=== PATIENT | male | born 1940 | race American Indian/Alaskan Native ===

== ENCOUNTER 2016-10-14 10:13 | Outpatient (CLI) | payer MEDICARE, OTHER ==
[2016-10-14 10:48] LABS: ALBUMIN/GLOBULIN RATIO 1.4 (1.0-2.2); CALCIUM 8.9 mg/dL (8.5-10.3); CREATININE 1.1 mg/dL (0.6-1.2); POTASSIUM 3.7 mmol/L (3.5-5.0); TOTAL PROTEIN 7.1 g/dL (6.7-8.2)
== END 2016-10-14 10:14 | disposition home or self-care (01) ==
LOC: LAB 10:13
DX: I10 Essential (primary) hypertension (principal)
CPT/HCPCS: 36415; 80053

== ENCOUNTER 2017-08-22 10:31 | Outpatient (CLI) | payer MEDICARE, OTHER | END 2017-08-22 10:32 | disposition home or self-care (01) | LOC: LAB 10:31 | DX: E55.9 Vitamin D deficiency, unspecified (principal) | CPT/HCPCS: 36415; 82306 ==

== ENCOUNTER 2019-11-30 12:24 | Emergency (ER) | payer MEDICARE, OTHER ==
--- NOTE | 2019-11-30 13:28 | XRAY Report ---
PROCEDURE: Shoulder 3 View LT INDICATIONS: L shoulder pain, hx of fx TECHNIQUE: 3 views of the shoulder were acquired. COMPARISON: None. FINDINGS: Bones: There is anterior dislocation of the humeral head relative to the glenoid with impaction. A H ill-Sachs lesion is seen in the posterosuperior humeral head. No suspicious bony lesions. Visualized ribs appear intact. Mild acromioclavicular joint osteoarthrosis. Soft tissues: No suspicious soft tissue calcifications. IMPRESSION: Anterior dislocation of the humeral head with probable acute on chronic Hill-Sachs lesion of the post erosuperior humeral head. Postreduction radiographs can be obtained to better evaluate the anterior g lenoid. Findings were discussed with the referring provider, Dr. Lazar, by telephone on 11/30/2019 at 1:25 PM . Reviewed by: Davey Mercado MD on 11/30/2019 1:27 PM PDT Approved by: Davey Mercado MD on 11/30/2019 1:27 PM PDT Station ID: [id number]
[2019-11-30] MEDS ORDERED: PROPOFOL 200 MG/20 ML VIAL IVP STA ×2 (13:44→18:04)
[2019-11-30 15:49] VITALS: BP 151/96
--- NOTE | 2019-11-30 15:50 | XRAY Report ---
PROCEDURE: Shoulder 2 View LT INDICATIONS: post-reduction TECHNIQUE: 2 views of the shoulder were acquired. COMPARISON: Same day left shoulder radiographs. FINDINGS: Bones: Relocation of the left shoulder glenohumeral joint. Hill-Sachs deformity at the posterior late ral humeral head is seen. No bony Bankart is seen. No suspicious bony lesions. Visualized ribs appe ar intact. Soft tissues: No suspicious soft tissue calcifications. IMPRESSION: Relocation of the left shoulder GH joint. Hill-Sachs fracture is present. Reviewed by: Christiano Barajas MD on 11/30/2019 3:48 PM PDT Approved by: Christiano Barajas MD on 11/30/2019 3:48 PM PDT Station ID: [id number]
--- NOTE | 2019-11-30 15:58 | ED Physician Documentation ---
History of Present Illness - Stated complaint Stated Complaint: LT SHOULDER PX - Chief complaint Chief Complaint: Ext Problem - History obtained from History obtained from: Patient - Additonal information Additional information: Patient comes emergency department complaining of pain in his left shoulder last night after turning his head while having his hands behind his head. Patient states he has a history of extensive injury in 2004 after a fall, which resulted in rotator cuff tear and left shoulder dislocation. Patient repairs of his injuries and never did have any further problems with the shoulder until last night. Patient states he has been able to move the shoulder somewhat, but has a lot of pain if he tries to internally or externally rotate. He also cannot raise the shoulder very high without pain. Patient denies any numbness or tingling. No other injuries. No other complaints at this time Review of Systems Ten Systems: 10 systems reviewed and negative Constitutional: reports: Reviewed and negative Eyes: reports: Reviewed and negative Ears: reports: Reviewed and negative Nose: reports: Reviewed and negative Throat: reports: Reviewed and negative Cardiac: reports: Reviewed and negative Respiratory: reports: Reviewed and negative GI: reports: Reviewed and negative : reports: Reviewed and negative Skin: reports: Reviewed and negative Musculoskeletal: reports: Joint pain Neurologic: reports: Reviewed and negative Psychiatric: reports: Reviewed and negative Endocrine: reports: Reviewed and negative Immunocompromised: reports: Reviewed and negative PD PAST MEDICAL HISTORY - Past Medical History Past Medical History: Yes Cardiovascular: Hypertension, High cholesterol Respiratory: None Neuro: None Endocrine/Autoimmune: None GI: None : Benign prostate hypertrophy, Other HEENT: Other Psych: None Musculoskeletal: Gout, Other Derm: None Other Past Medical History: L humeral fx and rotator cuff repair, IVC filter, prostatectomy - Past Surgical History Past Surgical History: Yes Ortho: Rotator cuff repair Cardiovascular: Other HEENT: Cataracts - Present Medications Home Medications: Ambulatory Orders Medication Instructions Recorded Confirmed Hydrocodone/Acetaminophen 1 each PO Q6HR PRN #12 tablet 11/30/19 [Hydrocodon-Acetaminophn 10-325] - Allergies Allergies/Adverse Reactions: Allergies Allergy/AdvReac Type Severity Reaction Status Date / Time No Known Drug Allergies Allergy Verified 11/30/19 12:43 - Social History Does the pt smoke?: No Smoking Status: Never smoker Does the pt drink ETOH?: No Does the pt have substance abuse?: No - Immunizations Immunizations are current?: Yes PD ED PE NORMAL - Vitals Vital signs reviewed: Yes - General General: Alert and oriented X 3, No acute distress, Well developed/nourished - HEENT HEENT: Atraumatic, PERRL, EOMI, Moist mucous membranes - Neck Neck: Supple, no meningeal sign - Cardiac Cardiac: Strong equal pulses - Respiratory Respiratory: No respiratory distress - Derm Derm: Normal color, Warm and dry, No rash - Extremities Extremities: No edema, No calf tenderness / cord, Other (Patient has mild caving at the glenoid rim on the left shoulder. Limited active range of motion in all directions, but nearly full passive range of motion is noted, though this does cause some pain.) - Neuro Neuro: Alert and oriented X 3, turbine assembler 2-12 intact, No motor deficit, No sensory deficit, Normal speech - Psych Psych: Normal mood, Normal affect Results - Vitals Vitals: Oxygen O2 Source Room air - Rads (name of study) L Shoulder XR #1 Radiology: Final report received, EMP read indepedently, See rad report (Anterior dislocation of humeral head with probable acute on chronic Hill-Sachs lesion of the posterior superior humeral head.) Shoulder XR #2 Radiology: Final report received, EMP read indepedently, See rad report (Relocation of left shoulder glenohumeral joint. No bony Bankart lesion.) Procedures - Reduction Body part reduced: Left, Shoulder Fracture or dislocation: Dislocation Anesthesia: Propofol Shoulder reduction technique: Traction - counter tract Reduction aftercare: NV intact, Xray confirms reduction, Alignment improved, Sling, Patient tolerated well - Procedural sedation Sedation prep: Informed consent, Time out completed, Last meal (0800 (liquid only)), PE performed, ASA 2 - mild disease, IV O2 monitor, RT present Sedation medications: propofol Patient status during sedation: Unresponsive, Vitals remained stable, Maintained airway, Recovered uneventfully Sedation recovery: Recovered uneventfully PD MEDICAL DECISION MAKING - ED course Complexity details: reviewed old records, reviewed results, re-evaluated patient, considered differential, d/w patient ED course: Patient's dislocation was reduced as noted. Patient recovered from his anesthesia without incident and was without further complaints. He was neurovascularly intact. We have discussed wearing a sling, plus doing some gentle range of motion. Patient is scheduled to follow-up with Dr. Aceves, his primary care physician on [place] [address]. He is encouraged to keep that appointment, during which he may discuss referral to orthopedics if needed. We have discussed the usual indications for return. Patient's was present throughout the entire stay and will be driving him home. Departure - Departure Disposition: 01 Home, Self Care Clinical Impression: Shoulder dislocation Qualifiers: Encounter type: initial encounter Laterality: left Qualified Code(s): S43.005A - Unspecified dislocation of left shoulder joint, initial encounter Condition: Stable Instructions: ED Dislocation Shoulder Redu Prescriptions: Hydrocodone/Acetaminophen [Hydrocodon-Acetaminophn 10-325] 1 each PO Q6HR PRN #12 tablet PRN Reason: Pain Discharge Date/Time: 11/30/19 16:23
== END 2019-11-30 16:23 | disposition home or self-care (01) ==
LOC: ED 12:24
DX: S43.015A Anterior dislocation of left humerus, initial encounter (principal); X50.9XXA Other and unspecified overexertion or strenuous movements or postures, initial encounter; M19.012 Primary osteoarthritis, left shoulder; I10 Essential (primary) hypertension
CPT/HCPCS: 94770; 99152; 99153; 99284; 99285

== ENCOUNTER 2020-11-09 06:33 | Emergency (ER) | payer MEDICARE, OTHER ==
[2020-11-09] MEDS ORDERED: HYDROmorphone 1 MG/ML CARPUJECT IVP STA (07:27)
[2020-11-09] MEDS ORDERED: KETOROLAC 30 MG/ML VIAL IVP STA (07:27)
[2020-11-09] MEDS ORDERED: PROPOFOL 200 MG/20 ML VIAL IVP STA (07:36)
--- NOTE | 2020-11-09 07:54 | XRAY Report ---
PROCEDURE: Shoulder 3 View LT INDICATIONS: fall/pain TECHNIQUE: 3 views of the shoulder were acquired. COMPARISON: 11/30/2019 FINDINGS: Bones: There is anterior shoulder dislocation. There is a Hill-Sachs deformity seen, with bone fragme nts seen. Age-appropriate degenerative changes are seen. The visualized ribs appear intact. No suspicious lytic or blastic lesions are seen. Soft tissues: No suspicious soft tissue calcifications. The visualized lung demonstrates a normal a ppearance. IMPRESSION: Anterior shoulder dislocation. There is a Hill-Sachs deformity seen, which was previously demonstrated. If it would be helpful for clinical management decision making, please consider a dedicated shoulder CT for further evaluation. Reviewed by: Kelby Negron MD on 11/09/2020 6:53 AM CODEY Approved by: Kelby Negron MD on 11/09/2020 6:53 AM CODEY Station ID: [id number]
--- NOTE | 2020-11-09 07:57 | ED Physician Documentation ---
PD HPI UPPER EXT INJURY - Stated complaint Stated Complaint: LT SHOULDER PX - Chief complaint Chief Complaint: Ext Problem - History obtained from History obtained from: Patient - Additonal information Additional information: Patient comes emergency department chief complaint of left shoulder pain and dislocation after a ground-level fall last night. Patient states he slipped and fell in the kitchen and that he believes he tried to catch himself with his left upper extremity. The patient has a history of recurrent dislocations previously and was seen in our ED last November by myself for the same thing. The patient states that he figured his shoulder was dislocated, but he wanted to try to get some sleep, so he went to bed. As such, the patient is about 10 hours out from the injury. He states he feels as though he got some bumps and bruises but denies any other significant injury. He did bump his head, on what he is not sure, but does not think he lost consciousness. He has been ambulatory since the accident. Review of Systems Ten Systems: 10 systems reviewed and negative Constitutional: reports: Reviewed and negative Eyes: reports: Reviewed and negative Ears: reports: Reviewed and negative Nose: reports: Reviewed and negative Throat: reports: Reviewed and negative Cardiac: reports: Reviewed and negative Respiratory: reports: Reviewed and negative GI: reports: Reviewed and negative : reports: Reviewed and negative Skin: reports: Reviewed and negative Musculoskeletal: reports: Joint pain Neurologic: reports: Reviewed and negative Psychiatric: reports: Reviewed and negative Endocrine: reports: Reviewed and negative Immunocompromised: reports: Reviewed and negative PD PAST MEDICAL HISTORY - Past Medical History Past Medical History: Yes Cardiovascular: Hypertension, High cholesterol Respiratory: Sleep apnea Neuro: None Endocrine/Autoimmune: None GI: None : Benign prostate hypertrophy, Other HEENT: Other Psych: None Musculoskeletal: Gout, Other Derm: None - Past Surgical History Past Surgical History: Yes Ortho: Rotator cuff repair Cardiovascular: Other HEENT: Cataracts - Present Medications Home Medications: Ambulatory Orders Medication Instructions Recorded Confirmed Calcipotriene/Betamethasone 1 applic TOP DAILY 10/23/20 11/09/20 [Wynzora 0.005%-0.064% Cream] Tacrolimus/Hyaluronate/Niacin 1 applic TOP DAILY 10/23/20 11/09/20 [Oxianujo 4%-0.1% Cream] Aspirin EC [Ecotrin] 1 tab PO DAILY 10/24/20 11/09/20 Cholecalciferol (Vitamin D3) 1,000 units PO BID 10/24/20 11/09/20 [Vitamin D3] Cyanocobalamin/Folic Acid 1 tab PO DAILY 10/24/20 11/09/20 [C02-Ntfpl Acid 2500-400 Mcg Tb] Losartan [Cozaar] 100 mg PO DAILY 10/24/20 11/09/20 Omeprazole [PriLOSEC] 1 tab PO DAILY 10/24/20 11/09/20 Potassium Chloride 1 tab PO DAILY 10/24/20 11/09/20 Propylene Glycol [Systane Complete] 1 drops EACHEYE DAILY 10/24/20 11/09/20 Zaleplon 1 cap PO DAILY 10/24/20 11/09/20 bisoproloL fumarate [Bisoprolol 1 tab PO DAILY 10/24/20 11/09/20 Fumarate] HYDROcod/ACETAM 5/325 [[place] 5/325] 1 - 2 tablet PO Q6H PRN #14 tablet 11/09/20 - Allergies Allergies/Adverse Reactions: Allergies Allergy/AdvReac Type Severity Reaction Status Date / Time No Known Drug Allergies Allergy Verified 11/09/20 06:39 - Social History Does the pt smoke?: No Smoking Status: Never smoker Does the pt drink ETOH?: No Does the pt have substance abuse?: No - Immunizations Immunizations are current?: Yes PD ED PE NORMAL - Vitals Vital signs reviewed: Yes - General General: Alert and oriented X 3, No acute distress, Well developed/nourished - HEENT HEENT: Atraumatic, PERRL, EOMI, Moist mucous membranes - Neck Neck: Supple, no meningeal sign, No bony TTP - Cardiac Cardiac: RRR, No murmur, Strong equal pulses - Respiratory Respiratory: No respiratory distress, Clear bilaterally - Abdomen Abdomen: Soft, Non tender, Non distended - Back Back: No spinal TTP - Derm Derm: Normal color, Warm and dry, No rash - Extremities Extremities: No edema, Other (Left shoulder with concavity and hollowness at the shoulder joint, just inferior to the glenoid rim. Humeral head is palpable medial and anterior to the joint.) - Neuro Neuro: Alert and oriented X 3 - Psych Psych: Normal mood, Normal affect Results - Vitals Vitals: Vital Signs - 24 hr 11/09/20 11/09/20 11/09/20 06:39 06:43 07:58 Temperature 36.2 C L 36.2 C L Heart Rate 59 L 59 L 58 L Respiratory 17 17 17 Rate Blood Pressure 148/87 H 148/87 H 122/93 H O2 Saturation 95 95 97 11/09/20 11/09/20 11/09/20 08:20 08:30 08:35 Temperature Heart Rate 55 L 50 L 56 L Respiratory 14 12 15 Rate Blood Pressure 125/78 132/74 H O2 Saturation 99 99 11/09/20 11/09/20 11/09/20 08:40 08:45 09:12 Temperature Heart Rate 54 L 52 L 49 L Respiratory 15 16 16 Rate Blood Pressure 116/80 115/85 H O2 Saturation 96 97 97 11/09/20 09:23 Temperature Heart Rate 56 L Respiratory 15 Rate Blood Pressure 122/76 O2 Saturation 98 Oxygen O2 Source Room air - Rads (name of study) Left shoulder x-ray Radiology: Final report received, EMP read indepedently, See rad report (Anterior dislocation left shoulder) L shoulder xr, post-reduction Radiology: Final report received, EMP read indepedently, See rad report (relocated, continued appearance of Hill-Sachs deformity.) Procedures - Reduction Body part reduced: Left, Shoulder Fracture or dislocation: Dislocation Anesthesia: Other (Propofol) Shoulder reduction technique: Traction - counter tract Reduction aftercare: NV intact, Xray confirms reduction, Alignment improved, Sling, Patient tolerated well - Procedural sedation Sedation prep: Informed consent, Time out completed, Last meal (Last night), ASA 2 - mild disease, IV O2 monitor, ET CO2 monitor, RT present Sedation medications: propofol Patient status during sedation: Unresponsive, Vitals remained stable, Maintained airway, Recovered uneventfully Sedation recovery: Recovered uneventfully, Back to baseline Time in sedation (Minutes): 5 PD MEDICAL DECISION MAKING - ED course Complexity details: reviewed results, re-evaluated patient, considered differential, d/w patient, d/w family ED course: The patient had an established history of prior left shoulder dislocations with Hill-Sachs deformity, and the same findings were noted on today's x-ray. Patient was sedated as above and dislocation was reduced without difficulty. The patient recovered uneventfully and repeat x-ray showed the shoulder to be relocated. We discussed the need for the patient to follow-up with orthopedics if he continues to have issues with dislocation. We have discussed the usual indications for return. His is present to drive him home. Departure - Departure Disposition: 01 Home, Self Care Clinical Impression: Shoulder dislocation Qualifiers: Encounter type: initial encounter Laterality: left Qualified Code(s): S43.005A - Unspecified dislocation of left shoulder joint, initial encounter Condition: Stable Instructions: ED Dislocation Shoulder Redu, ED Sling Prescriptions: HYDROcod/ACETAM 5/325 [[place] 5/325] 1 - 2 tablet PO Q6H PRN #14 tablet PRN Reason: Pain Comments: Please wear the sling for the next week. You may take your arm out and do gentle range of motion but do not do any big movements or raise your arm above your head until the week has passed. Your dislocation was reduced easily with sedation today. Please follow-up with your orthopedist if you have further concerns about your shoulder. As far as your head injury, you have opted not to have CT scan today. There is a small area of bruising over your left posterior scalp, but most likely, given the amount of time that has passed since you hit your head, there is no bleeding in the brain. However, if you begin to feel worsening headache or if you develop dizziness or any other concerning symptoms, please return to the emergency department for further evaluation. Discharge Date/Time: 11/09/20 09:50
--- NOTE | 2020-11-09 08:52 | XRAY Report ---
PROCEDURE: Shoulder 1 View LT INDICATIONS: post-reduction TECHNIQUE: 1 view of the shoulder was acquired. COMPARISON: Earlier in the day, 11/09/2020 FINDINGS: Bones: The shoulder has now been relocated. Hill-Sachs deformity with bone fragments can again be se en. No suspicious bony lesions. Visualized ribs appear intact. Soft tissues: No suspicious soft tissue calcifications. IMPRESSION: Shoulder relocation. Hill-Sachs deformity with bone fragments seen. Reviewed by: Kelby Negron MD on 11/09/2020 7:50 AM CODEY Approved by: Kelby Negron MD on 11/09/2020 7:50 AM CODEY Station ID: [id number]
[2020-11-09 09:45] VITALS: BP 122/76
== END 2020-11-09 09:50 | disposition home or self-care (01) ==
LOC: ED 06:33
DX: S43.005A Unspecified dislocation of left shoulder joint, initial encounter (principal); W01.10XA Fall on same level from slipping, tripping and stumbling with subsequent striking against unspecified object, initial encounter; Y92.000 Kitchen of unspecified non-institutional (private) residence as the place of occurrence of the external cause; S42.292A Other displaced fracture of upper end of left humerus, initial encounter for closed fracture
CPT/HCPCS: 23655; 73020; 73030; 96374; 99283; 99285; J1170; 94770

== ENCOUNTER 2021-06-03 10:34 | Outpatient (CLI) | payer MEDICARE, OTHER ==
[2021-06-03 11:24] VITALS: BP 138/70
--- NOTE | 2021-06-03 11:24 | SLEEP CARE CONSULTATION ---
Information from patient questionnaire entered by Hailee Mina MA. I have reviewed and concur with the information entered by Hailee Mina MA. This document represents the service I personally performed and the decisions made by , Kathe Hall ARNP. History of Present Illness Service Date and Time: 06/03/2021 1034 Reason for Visit: New patient (ON CPAP, FIRST COMPLIANCE,), Previously diagnosed sleep apnea, sleep apnea on CPAP therapy Accompanied by: Spouse Chief Complaint: reports: Snoring, Observed pauses in breathing, Other (Check CPAP chip) Date of Onset: 10 years Usual bedtime: 8-9 pm Time it takes to fall asleep: 1-2 hours Snores at night: Yes Observed to quit breathing while asleep: Yes Sleeps alone due to snoring: Yes Number of times waking at night: 2-3 Reasons for waking at night: reports: Bathroom Toss, Turn, or Twitch while sleeping: Yes Recalls having dreams: Yes Usually gets out of bed at: 6 am Feels refreshed in the morning: No Morning headache: No Sleepy or fatigued during the day: No Ever fallen asleep while driving: No Takes day naps: Yes Dreams during day naps: No Prior sleep studies: Yes Year and Where: 2009 [facility] Additional HPI information: RUBEN MOODY was previously diagnosed to have severe, AHI 38, 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 - Parasomnia Symptoms Ever been unable to move upon waking from sleep: No Walks in sleep: No Talks in sleep: No Ever acted out dreams in sleep: No Ever felt weak in the knees when startled or emotional: No Bothered by creepy, crawly, restless sensations in legs: No Problems with memory or concentration: No CPAP Compliance Data - Data Reviewed with Patient Average duration of nightly device use: 8 hours 59 minutes Compliance rate %: 82 (ASV with EPAP 6 cmH2O/pressure support 3-15) Current pressure setting (cmH2O): 6/3-15 Average residual AHI: 2.4 Compliance data discussion: He is using a nasal cushion mask. He is with [employer] for his supplies. Subjective Patient concerns: reports: dry mouth, nose, throat (occasionally). denies: aerophagia, mask discomfort, air blowing in eyes, mask leak noise, condensation in mask/hose, nasal congestion, epistaxis Observed to snore while using device: No Current pressure setting perceived as: comfortable On therapy, patient: reports: sleeping better, awakening more refreshed, being more awake and alert during the day, more rested overall. denies: drowsiness while driving Initial Herminie Sleepiness Scale score: 1 (2021) Past Medical History Past Medical History: reports: Hypertension, Gout, GERD Social History The patient's occupation is a RE. Patient is and lives in . Have you smoked in the past 12 months: No Alcohol use: Yes Alcohol amount and frequency: 1-2 glasses daily Caffeine use: No Family History Family history of sleep disordered breathing: No Allergies and Home Medications Drug allergies reviewed: Yes (NKDA) Home medication list reviewed: Yes Allergy and home medication list: Allergies No Known Drug Allergies Allergy (Verified 11/09/20 06:39) Medications: Allopurinol 300 mg Losartan 100 mg Bisoprolol Potassium 20 meq Atorvastatin 20 mg Spironolactone 25 mg Prilosec B6 - B12 low dose aspirin Review of Systems Cardiovascular: reports: high blood pressure Gastrointestinal: reports: heartburn Urinary: reports: frequency Ear/Nose/Throat: reports: tonsillectomy, wisdom teeth removed Endocrine: reports: increased urination Physical Exam Vital signs obtained and entered by: Vinnie MINA CMA MARGARITO Blood Pressure: 138/70 (RIGHT, PULSE 72, RESP 16, ) Cuff size: wrist Heart Rate: 67 O2 Saturation: 96 Height: 5 ft 8 in Weight: 182 lb (W/O) Body Mass Index: 27.6 BMI Classification: Overweight Impression and Plan 1. Complex Obstructive/Central Sleep Apnea-Hypopnea Syndrome, severe, with good treatment compliance and good apnea control. On ASV CPAP therapy, the patient has better sleep quality and is more rested overall. Ruben has been on a ASV CPAP since original diagnosis in 2011. He is satisfied with therapy and has significant improvement of his sleep apnea. He occasionally gets some dry mouth for which he sips liquids during the night when necessary. He comes in today to get his compliance follow up for he new machine. He is compliant according to his therapy report. There are no changes needed and I will let his DME [employer] know to update his supplies. I will follow up with him in a year. Patient's apnea severity and rationale for treatment to reduce apnea, improve sleep quality and reduce cardiovascular and cerebrovascular events was reviewed. I also reviewed the benefit of consistent device use of CPAP for hypertension and gastric reflux. * Continue ASV CPAP pressure at EPAP 6 cmH2O with pressure support 3-15 cmH2O * Prescription to update supplies as needed * Notify me if snoring with mask or feeling that the pressure is too much or too little * Try to lose weight * Call this office if any problems using CPAP * Return for follow up in 1 year, or sooner if concerns arise Other Participants: Spouse/Significant Other Time Spent with Patient (minutes): 32
== END 2021-06-03 10:35 | disposition home or self-care (01) ==
LOC: SC 10:34
PROVIDERS: ATTEND Nurse Practitioner Family
DX: G47.31 Primary central sleep apnea (principal); G47.33 Obstructive sleep apnea (adult) (pediatric); E66.3 Overweight; Z68.27 Body mass index [BMI] 27.0-27.9, adult
CPT/HCPCS: 99203; G0463; 99212

== ENCOUNTER 2021-08-12 08:48 | Emergency (ER) | payer MEDICARE, OTHER ==
[2021-08-12 09:08] VITALS: BP 118/71
[2021-08-12] MEDS: CHERRY SYRUP 10 ML UDC PO ONE (09:29)
[2021-08-12] MEDS: HYDROcod/ACETAM 5/325 MG TABLET PO STA (09:29)
[2021-08-12] MEDS: DEXAMETHASONE 10 MG/ML VIAL PO STA (09:29)
[2021-08-12] MEDS: DOXYCYCLINE 100 MG TABLET PO STA (09:29)
[2021-08-12] MEDS: COLCHICINE 0.6 MG TABLET PO STA (09:31)
--- NOTE | 2021-08-12 09:31 | ED Physician Documentation ---
PD HPI SKIN - Stated complaint Stated Complaint: RT FT SWELLING - Chief complaint Chief Complaint: Wound - History obtained from History obtained from: Patient - History of Present Illness Timing - onset: Yesterday Timing - details: Abrupt onset, Still present Location: LLE (left great toe MTP side and plantar redness and swelling with callus developed over past 2-3 days.) Quality / character: Painful, Discolored (red), Swelling Associated symptoms: No: Fever, N/V/D Similar symptoms before: Diagnosis (remote history of gout. Has had callus wound on other foot, treated at wound care clinic and slowly healed.) Recently seen: Not recently seen Review of Systems Constitutional: denies: Fever, Chills Skin: reports: Lesions (callus without drainage on plantar MT head area.) PD PAST MEDICAL HISTORY - Past Medical History Cardiovascular: Hypertension, High cholesterol Respiratory: Sleep apnea Neuro: None Endocrine/Autoimmune: None GI: None : Benign prostate hypertrophy, Other HEENT: Other Psych: None Musculoskeletal: Gout, Other Derm: None - Past Surgical History Past Surgical History: Yes Ortho: Rotator cuff repair Cardiovascular: Other HEENT: Cataracts - Present Medications Home Medications: Ambulatory Orders Medication Instructions Recorded Confirmed Calcipotriene/Betamethasone 1 applic TOP DAILY 10/23/20 11/09/20 [Wynzora 0.005%-0.064% Cream] Tacrolimus/Hyaluronate/Niacin 1 applic TOP DAILY 10/23/20 11/09/20 [Oxianujo 4%-0.1% Cream] Aspirin EC [Ecotrin] 1 tab PO DAILY 10/24/20 11/09/20 Cholecalciferol (Vitamin D3) 1,000 units PO BID 10/24/20 11/09/20 [Vitamin D3] Cyanocobalamin/Folic Acid 1 tab PO DAILY 10/24/20 11/09/20 [A67-Pgvhx Acid 2500-400 Mcg Tb] Losartan [Cozaar] 100 mg PO DAILY 10/24/20 11/09/20 Omeprazole [PriLOSEC] 1 tab PO DAILY 10/24/20 11/09/20 Potassium Chloride 1 tab PO DAILY 10/24/20 11/09/20 Propylene Glycol [Systane Complete] 1 drops EACHEYE DAILY 10/24/20 11/09/20 Zaleplon 1 cap PO DAILY 10/24/20 11/09/20 bisoproloL fumarate [Bisoprolol 1 tab PO DAILY 10/24/20 11/09/20 Fumarate] HYDROcod/ACETAM 5/325 [[place] 5/325] 1 - 2 tablet PO Q6H PRN #14 tablet 11/09/20 Colchicine 0.6 mg PO BID 5 Days #10 tablet 08/12/21 Doxycycline Hyclate 100 mg PO BID 5 Days #10 cap 08/12/21 HYDROcod/ACETAM 5/325 [[place] 5/325] 1 ea PO Q6H PRN #15 tablet 08/12/21 dexAMETHasone [Decadron] 4 mg PO DAILY #7 tablet 08/12/21 - Allergies Allergies/Adverse Reactions: Allergies Allergy/AdvReac Type Severity Reaction Status Date / Time No Known Drug Allergies Allergy Verified 08/12/21 08:57 - Social History Does the pt smoke?: No Smoking Status: Never smoker Does the pt drink ETOH?: No Does the pt have substance abuse?: No - Immunizations Immunizations are current?: Yes PD ED PE NORMAL - Vitals Vital signs reviewed: Yes - General General: Alert and oriented X 3, No acute distress, Well developed/nourished - Derm Derm: Normal color, Warm and dry - Extremities Extremities: Other (left foot with redness/tender/swelling medial great toe MTP and plantar area. Skin callus with superficial hard skin in area. Some softness/fluctuance underneath. ) Results - Vitals Vitals: Vital Signs - 24 hr 08/12/21 08:57 Temperature 37.0 C Heart Rate 56 L Respiratory 19 Rate Blood Pressure 118/71 O2 Saturation 100 Oxygen O2 Source Room air - Labs Labs: Microbiology 08/12/21 09:23 Wound Culture - Preliminary Foot - Left Procedures - Abscess I&D (location) left plantar MT head Preparation: Lidocaine 1% Incision: Incised with scalpel, Culture obtained, Other (serous fluid several drops; did not appear purulent.) Other: Pt tolerated well, Dressing applied, Antibiotic prescribed PD MEDICAL DECISION MAKING - ED course Complexity details: considered differential (gout versus infection, with some skin wound in the area. Can treat as both for now. Did get culture from callus area. ), d/w patient Departure - Departure Disposition: 01 Home, Self Care Clinical Impression: Plantar callus, Exacerbation of gout, Cellulitis Acute foot pain Qualifiers: Laterality: left Qualified Code(s): M79.672 - Pain in left foot Condition: Stable Record reviewed to determine appropriate education?: Yes Instructions: ED Infec Skin Cellulitis, ED Arthritis Gout Prescriptions: Colchicine 0.6 mg PO BID 5 Days #10 tablet dexAMETHasone [Decadron] 4 mg PO DAILY #7 tablet Doxycycline Hyclate 100 mg PO BID 5 Days #10 cap HYDROcod/ACETAM 5/325 [[place] 5/325] 1 ea PO Q6H PRN #15 tablet PRN Reason: Pain Comments: This likely represents a gout flareup. However with the callus in that same area with some mild fluid underneath, concern would be also for a local infection. You could certainly have both with the infection triggering the gout. I did do a culture of the fluid from in that area. It did not look purulent per se. The culture should result in 2 to 3 days. Meanwhile we will treated with doxycycline antibiotic for concern of staph or strep type infection. Additionally treating for gout with Decadron steroid daily for a week and col chicine twice daily with food for the next several days up to 5 days. Add Tylenol every 4-6 hours if needed for pain or hydrocodone/acetaminophen as needed for worse pain. Recheck if not improving well over the next several days. Return if worse. I transmitted your prescriptions to [facility] in [place]. I am prescribing a short course of narcotic pain medication for you. These are potentially dangerous and addictive medications that should be used carefully. These medications may constipate you. Take an rggu-kqn-oqahiyd stool softener such as docusate twice daily with plenty of water while taking these medications. If you go 24 hours without a bowel movement, take lmrh-csq-pnfwuyg MiraLAX, per package instructions. Do not drink or drive while taking these medications. If you received narcotic or sedating medications while in the emergency department do not drive for 24 hours. Store this medication in a safe, secure place and out of reach of children. It is a violation of federal law to give or sell this medication to another person or to use in a manner other than prescribed. The ED will not refill narcotic prescriptions, including prescriptions lost or stolen. You can dispose of unwanted medications at the [facility]'s office or at several pharmacies such as [facility]. Discharge Date/Time: 08/12/21 09:39
== END 2021-08-12 09:39 | disposition home or self-care (01) ==
LOC: ED 08:48
DX: M79.672 Pain in left foot (principal); L84 Corns and callosities; M10.9 Gout, unspecified
CPT/HCPCS: 10060; 87070; 87181; 87205; 99283; 99284; A9270; 87077

== ENCOUNTER 2021-08-30 10:10 | Emergency (ER) | payer MEDICARE, OTHER ==
--- NOTE | 2021-08-30 10:52 | XRAY Report ---
PROCEDURE: Shoulder 3 View LT INDICATIONS: pain, trauma to extremity TECHNIQUE: 3 views of the shoulder were acquired. COMPARISON: None. FINDINGS: Bones: Humeral head is dislocated anteroinferiorly. 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 No suspicious bony lesions. Visualized ribs appear intact. Soft tissues: No suspicious soft tissue calcifications. IMPRESSION: Recurrent shoulder dislocation. Reviewed by: Richelle Rey MD on 08/30/2021 10:50 AM PDT Approved by: Richelle Rey MD on 08/30/2021 10:50 AM PDT Station ID: [id number]
--- NOTE | 2021-08-30 11:16 | ED Physician Documentation ---
PD HPI UPPER EXT INJURY - Stated complaint Stated Complaint: LEFT SHOULDER PX,LEFT FOOT PX - Chief complaint Chief Complaint: Ext Problem - History obtained from History obtained from: Patient - History of Present Illness Location: Left, Shoulder Type of injury: Twist (he rolled over in bed and felt his shoulder pop out. This happened several hours ago.) Where injury occurred: Home Timing - onset: How many hours ago Timing - duration: Hours Timing - details: Abrupt onset, Still present Improved by: Immobilization Worsened by: Moving, Palpating Associated symptoms: No: Weakness, Numbness Similar symptoms before: Diagnosis (prior dislocations 4 times in past 10 years, with initial injury 10 years ago with rotator cuff injury. Subsequent dislocations were low impact or torsional.) Recently seen: Emergency Dept (he had callus on foot get infected and had it lanced/unroofed and subsequent wound care/abx with improvment. He has some loose skin still and wanted wound checked while here as well.) Review of Systems Constitutional: denies: Fever, Chills Nose: denies: Rhinorrhea / runny nose, Congestion Throat: denies: Sore throat Respiratory: denies: Cough Musculoskeletal: reports: Joint pain (just the left shoulder this morning.) Neurologic: denies: Focal weakness, Numbness PD PAST MEDICAL HISTORY - Past Medical History Cardiovascular: Hypertension, High cholesterol Respiratory: Sleep apnea Neuro: None Endocrine/Autoimmune: None GI: None : Benign prostate hypertrophy, Other HEENT: Other Psych: None Musculoskeletal: Gout, Other Derm: None - Past Surgical History Past Surgical History: Yes Ortho: Rotator cuff repair Cardiovascular: Other HEENT: Cataracts - Present Medications Home Medications: Ambulatory Orders Medication Instructions Recorded Confirmed Calcipotriene/Betamethasone 1 applic TOP DAILY 10/23/20 11/09/20 [Wynzora 0.005%-0.064% Cream] Tacrolimus/Hyaluronate/Niacin 1 applic TOP DAILY 10/23/20 11/09/20 [Oxianujo 4%-0.1% Cream] Aspirin EC [Ecotrin] 1 tab PO DAILY 10/24/20 11/09/20 Cholecalciferol (Vitamin D3) 1,000 units PO BID 10/24/20 11/09/20 [Vitamin D3] Cyanocobalamin/Folic Acid 1 tab PO DAILY 10/24/20 11/09/20 [B67-Klpkf Acid 2500-400 Mcg Tb] Losartan [Cozaar] 100 mg PO DAILY 10/24/20 11/09/20 Omeprazole [PriLOSEC] 1 tab PO DAILY 10/24/20 11/09/20 Potassium Chloride 1 tab PO DAILY 10/24/20 11/09/20 Propylene Glycol [Systane Complete] 1 drops EACHEYE DAILY 10/24/20 11/09/20 Zaleplon 1 cap PO DAILY 10/24/20 11/09/20 bisoproloL fumarate [Bisoprolol 1 tab PO DAILY 10/24/20 11/09/20 Fumarate] HYDROcod/ACETAM 5/325 [[place] 5/325] 1 - 2 tablet PO Q6H PRN #14 tablet 11/09/20 Colchicine 0.6 mg PO BID 5 Days #10 tablet 08/12/21 Doxycycline Hyclate 100 mg PO BID 5 Days #10 cap 08/12/21 HYDROcod/ACETAM 5/325 [[place] 5/325] 1 ea PO Q6H PRN #15 tablet 08/12/21 dexAMETHasone [Decadron] 4 mg PO DAILY #7 tablet 08/12/21 - Allergies Allergies/Adverse Reactions: Allergies Allergy/AdvReac Type Severity Reaction Status Date / Time No Known Drug Allergies Allergy Verified 08/12/21 08:57 - Social History Does the pt smoke?: No Smoking Status: Never smoker Does the pt drink ETOH?: No Does the pt have substance abuse?: No - Immunizations Immunizations are current?: Yes PD ED PE NORMAL - Vitals Vital signs reviewed: Yes - General General: Alert and oriented X 3, Well developed/nourished, Other (Appears uncomfortable with guarding range of motion splinted arm to the left side.) - Cardiac Cardiac: RRR, No murmur - Respiratory Respiratory: Clear bilaterally - Derm Derm: Normal color, Warm and dry, Other (The left medial great toe MTP area with a area of prior blister that is now open without any signs of infection. Appears okay without any swelling) - Extremities Extremities: Other (Palpable anterior dislocation of the left shoulder.) - Neuro Neuro: Alert and oriented X 3, No motor deficit, No sensory deficit Results - Vitals Vitals: Vital Signs - 24 hr 08/30/21 08/30/21 10:25 12:10 Temperature 36.7 C 36.6 C Heart Rate 53 L 50 L Respiratory 18 16 Rate Blood Pressure 122/73 121/72 O2 Saturation 97 100 Oxygen O2 Source Room air - Rads (name of study) shoulder Radiology: Prelim report reviewed (dislocation anterior), See rad report shoulder left, post reduction Radiology: Prelim report reviewed, See rad report (adequate reduction) Procedures - Reduction Body part reduced: Left, Shoulder Fracture or dislocation: Dislocation Shoulder reduction technique: [place] / ext rotation Reduction aftercare: NV intact, Xray confirms reduction, Alignment improved, Sling PD MEDICAL DECISION MAKING - ED course Complexity details: reviewed results, considered differential (The patient has had several dislocations previously. Initial injury years ago. This dislocated which is to rotational movement. I was able to reduce it with a slow gentle Holton technique without any sedation or medication.), d/w patient Departure - Departure Disposition: 01 Home, Self Care Clinical Impression: Wound check, abscess Anterior shoulder dislocation Qualifiers: Encounter type: initial encounter Laterality: left Qualified Code(s): S43.015A - Anterior dislocation of left humerus, initial encounter Condition: Stable Record reviewed to determine appropriate education?: Yes Instructions: ED Dislocation Shoulder Redu Follow-Up: Susan Aceves MD [Primary Care Provider] - Comments: Use the sling to help protect range of motion of the shoulder over the next 2 to 3 days. Light use is okay. Progress use after that if feeling no okay. Your foot wounds appear good at this time. Continue with cleaning once or twice daily and ointment and bandaging. Tylenol ibuprofen as needed for pains. Discharge Date/Time: 08/30/21 12:27
[2021-08-30] MEDS ORDERED: ACETAMINOPHEN 325 MG TABLET PO STA (11:33)
[2021-08-30] MEDS ORDERED: HYDROcod/ACETAM 5/325 MG TABLET PO STA (11:52)
--- NOTE | 2021-08-30 11:57 | XRAY Report ---
PROCEDURE: Shoulder 2 View LT INDICATIONS: post reduction TECHNIQUE: 2 views of the shoulder were acquired. COMPARISON: Left shoulder plain films dated 08/30/2021 at 1039 hours FINDINGS: Bones: Humeral head has been relocated. Chronic appearing Hill-Sachs deformity of the humeral head. No suspicious bony lesions. Visualized ribs appear intact. Soft tissues: No suspicious soft tissue calcifications. IMPRESSION: 1. Humeral head relocation. 2. Chronic Hill-Sachs deformity of humeral head. 3. No definite acute fracture. No osseous lesion. If symptoms and/or clinical suspicion for pathology continue, further assessment with repeat plain films, or advanced imaging (e.g., CT, MRI, or bone sc an) is recommended for further assessment. Reviewed by: Richelle Rey MD on 08/30/2021 11:56 AM PDT Approved by: Richelle Rey MD on 08/30/2021 11:56 AM PDT Station ID: [id number]
[2021-08-30] MEDS ORDERED: BACITRACIN ZINC OINT 1 PACKET TOP STA (12:05)
[2021-08-30 12:11] VITALS: BP 121/72
== END 2021-08-30 12:27 | disposition home or self-care (01) ==
LOC: ED 10:10
DX: S43.015A Anterior dislocation of left humerus, initial encounter (principal); L02.612 Cutaneous abscess of left foot; X58.XXXA Exposure to other specified factors, initial encounter; Y93.89 Activity, other specified; Y92.003 Bedroom of unspecified non-institutional (private) residence as the place of occurrence of the external cause
CPT/HCPCS: 23650; 73030; 99282; 99283; A9270

== ENCOUNTER 2021-09-11 18:57 | Emergency (ER) | payer MEDICARE, OTHER ==
[2021-09-11] MEDS ORDERED: HYDROmorphone 1 MG/ML CARPUJECT IVP STA ×2 (19:35→19:46)
[2021-09-11] MEDS ORDERED: PROPOFOL 200 MG/20 ML VIAL IVP STA (19:46)
--- NOTE | 2021-09-11 19:46 | ED Physician Documentation ---
History of Present Illness - Stated complaint Stated Complaint: LEFT SHOULDER PX - Chief complaint Chief Complaint: Ext Problem - History obtained from History obtained from: Patient - History of Present Illness Timing: Prior to arrival Pain level now: 8 - Additonal information Additional information: This is the fourth [facility] ED visit in 13 days for this patient. Two of the three previous visits have been for left shoulder dislocation as is tonights chief complaint (one of the four visits was for an injury to right shoulder). I T+R this patient one week ago for spontaneous left glenohumeral dislocation. Shortly [employer], patient once again had atraumatic left glenohumeral dislocation, sudden onset left shoulder pain and deformity when he was lifting his LUE above his head in bed. He has had many previous left shoulder dislocations and intends to see an orthopedic surgeon about this problem to discuss options for treatment. Review of Systems Cardiac: reports: Reviewed and negative Respiratory: reports: Reviewed and negative GI: reports: Reviewed and negative Musculoskeletal: reports: Joint pain Neurologic: denies: Focal weakness, Numbness, Headache PD PAST MEDICAL HISTORY - Past Medical History Cardiovascular: Hypertension, High cholesterol Respiratory: Sleep apnea Neuro: None Endocrine/Autoimmune: None GI: None : Benign prostate hypertrophy, Other HEENT: Other Psych: None Musculoskeletal: Gout, Other Derm: None - Past Surgical History Past Surgical History: Yes Ortho: Rotator cuff repair Cardiovascular: Other HEENT: Cataracts - Present Medications Home Medications: Ambulatory Orders Medication Instructions Recorded Confirmed Calcipotriene/Betamethasone 1 applic TOP DAILY 10/23/20 11/09/20 [Wynzora 0.005%-0.064% Cream] Tacrolimus/Hyaluronate/Niacin 1 applic TOP DAILY 10/23/20 11/09/20 [Oxianujo 4%-0.1% Cream] Aspirin EC [Ecotrin] 1 tab PO DAILY 10/24/20 11/09/20 Cholecalciferol (Vitamin D3) 1,000 units PO BID 10/24/20 11/09/20 [Vitamin D3] Cyanocobalamin/Folic Acid 1 tab PO DAILY 10/24/20 11/09/20 [L80-Uadqy Acid 2500-400 Mcg Tb] Losartan [Cozaar] 100 mg PO DAILY 10/24/20 11/09/20 Omeprazole [PriLOSEC] 1 tab PO DAILY 10/24/20 11/09/20 Potassium Chloride 1 tab PO DAILY 10/24/20 11/09/20 Propylene Glycol [Systane Complete] 1 drops EACHEYE DAILY 10/24/20 11/09/20 Zaleplon 1 cap PO DAILY 10/24/20 11/09/20 bisoproloL fumarate [Bisoprolol 1 tab PO DAILY 10/24/20 11/09/20 Fumarate] HYDROcod/ACETAM 5/325 [[place] 5/325] 1 - 2 tablet PO Q6H PRN #14 tablet 11/09/20 Colchicine 0.6 mg PO BID 5 Days #10 tablet 08/12/21 Doxycycline Hyclate 100 mg PO BID 5 Days #10 cap 08/12/21 HYDROcod/ACETAM 5/325 [[place] 5/325] 1 ea PO Q6H PRN #15 tablet 08/12/21 dexAMETHasone [Decadron] 4 mg PO DAILY #7 tablet 08/12/21 Doxycycline Monohydrate 100 mg PO BID #20 cap 09/04/21 HYDROcod/ACETAM 5/325 [[place] 5/325] 1 - 2 tablet PO Q6H PRN #14 tablet 09/05/21 HYDROcod/ACETAM 5/325 [[place] 5/325] 1 - 2 tablet PO Q6H PRN #14 tablet 09/11/21 - Allergies Allergies/Adverse Reactions: Allergies Allergy/AdvReac Type Severity Reaction Status Date / Time No Known Drug Allergies Allergy Verified 09/11/21 19:16 - Social History Does the pt smoke?: No Smoking Status: Never smoker Does the pt drink ETOH?: No Does the pt have substance abuse?: No - Immunizations Immunizations are current?: Yes PD ED PE NORMAL - Vitals Vital signs reviewed: Yes - General General: Alert and oriented X 3, Well developed/nourished, Other (obvious painful distress) - HEENT HEENT: Atraumatic, Moist mucous membranes - Cardiac Cardiac: RRR - Respiratory Respiratory: No respiratory distress, Clear bilaterally PD ED PE EXPANDED - Extremities Extremities: Motor intact (strong thumb/finger opposition (OK sign)), Sensory intact (LTS intact left FA, hand, fingers), Vascular intact (strong left radial pulse), Other (obvious deformity left shoulder, with hollwed out lateral appearance immediately inferior (caudal) to squared-off shoulder. ) Results - Vitals Vitals: Oxygen O2 Source Room air - Rads (name of study) left shoulder xrays Radiology: Prelim report reviewed, EMP read indepedently, EMP read contemporaneously, See rad report post-reduction left shoulder xrays Radiology: Prelim report reviewed, EMP read indepedently, EMP read contemporaneously, See rad report Procedures - Reduction Body part reduced: Left, Shoulder Fracture or dislocation: Dislocation Anesthesia: Dilaudid, Other (propofol) Shoulder reduction technique: [place] / ext rotation Reduction aftercare: NV intact, Xray confirms reduction, Alignment improved, Sling, Patient tolerated well - Procedural sedation Sedation prep: Informed consent, Time out completed, ASA 2 - mild disease, IV O2 monitor, ET CO2 monitor, RT present Sedation Medications: propofol Mallampati classification: III Patient status during sedation: Responds to tactile, Vitals remained stable, Maintained airway, Recovered uneventfully Sedation recovery: Recovered uneventfully, Back to baseline Time in sedation (Minutes): 30 PD MEDICAL DECISION MAKING - ED course Complexity details: reviewed results, re-evaluated patient, considered differential, d/w patient ED course: After recovery from conscious sedation (propofol with dilaudid), patient requests rx for hydrocodone 7.5mg or 10mg tablets. I had provided an rx for hydrocodone 5/325 six days ago #14 tabs but he says he has run out of this. I provided a new rx for him, explaining that as a personal approach I prescribe 5mg tablets, 1-2 per dose (and typically splittable, so can take 7.5 or 10 mg per dose if needed according to his pain). I am prescribing a short course of short-acting opioid pain medication for this patient. I have reviewed the patients [employer] and no concerning findings were noted. I have discussed that the opioids are for short term therapy only, and will not be refilled from the ED Departure - Departure Disposition: 01 Home, Self Care Clinical Impression: Shoulder dislocation Qualifiers: Encounter type: initial encounter Laterality: left Qualified Code(s): S43.005A - Unspecified dislocation of left shoulder joint, initial encounter Condition: Good Instructions: ED Dislocation Shoulder Redu, ED Immobilizer Shoulder Prescriptions: HYDROcod/ACETAM 5/325 [[place] 5/325] 1 - 2 tablet PO Q6H PRN #14 tablet PRN Reason: Pain Comments: Follow up with your orthopedic surgeon. Given the recurrent nature of the left shoulder dislocations, you might need surgery to address this problem; such options would be best determined by an orthopedic surgeon. A prescription for hydrocodone/acetaminophen has been electronically submitted to the [facility] pharmacy in [place]. I am prescribing a short course of narcotic pain medication for you. These are potentially dangerous and addictive medications that should be used carefully. These medications may constipate you. Take an lnbn-yoa-mfekbch stool softener (docusate) twice daily with plenty of water while taking these medications. If you go 24 hours without a bowel movement, take aciy-jkh-ojdfgir miralax, per package instructions. Do not drink or drive while taking these medications. If you received narcotic or sedating medications while in the emergency department, do not drive for 24 hours. Store this medication in a safe, secure place and out of reach of children. It is a violation of federal law to give or sell this medication to another person or to use in a manner other than prescribed. The ED will not refill narcotic prescriptions, including prescriptions lost or stolen. To dispose of unwanted medications: 1. [facility] [address] in [place] has a medication drop box. They accept prescription medications (in pill form) Tuesday through Tuesday 9:00 a.m. to 5:00 p.m. 2. The [facility] accepts prescription medications (in pill form only) for disposal year round. Call for more information. 3. Contact the [facility] for the next [facility] sponsored prescription drug collection event. , [phone], or [phone]; Discharge Date/Time: 09/11/21 21:43
[2021-09-11] MEDS ORDERED: SODIUM CHLORIDE 0.9% 1,000 ML IV STA (19:47)
--- NOTE | 2021-09-11 19:50 | XRAY Report ---
PROCEDURE: Shoulder 3 View LT INDICATIONS: L shoulder pain TECHNIQUE: 3 views of the shoulder were acquired. COMPARISON: 09/05/2021. FINDINGS: Bones: There is anterior inferior dislocation at glenohumeral joint. Chronic-appearing Hill-Sachs def ormity in posterior lateral humeral head is seen. No other fracture is seen. No suspicious bony lesio ns. Visualized ribs appear intact. Soft tissues: No suspicious soft tissue calcifications. IMPRESSION: Recurrent anterior inferior dislocation at glenohumeral joint. Chronic-appearing Hill-Sa chs deformity of humeral head. Reviewed by: Moo Scanlon MD on 09/11/2021 7:49 PM PDT Approved by: Moo Scanlon MD on 09/11/2021 7:49 PM PDT Station ID: [id number]
--- NOTE | 2021-09-11 20:52 | XRAY Report ---
PROCEDURE: Shoulder 1 View LT INDICATIONS: post-reduction TECHNIQUE: 1 view of the shoulder were acquired. COMPARISON: 09/11/2021. 09/05/2021.. FINDINGS: Bones: There is interval reduction of the left glenohumeral joint. Deformity of the humeral head cons istent with a chronic Hill-Sachs fracture redemonstrated with associated small adjacent bony fragment s. No discrete bony [place] fracture identified. No suspicious bony lesions. Visualized ribs appear intact. Soft tissues: No suspicious soft tissue calcifications. IMPRESSION: 1. Interval reduction of the left glenohumeral joint. 2. Deformity of the humeral head consistent with a chronic Hill-Sachs lesion redemonstrated. Reviewed by: nAthony Myers MD on 09/11/2021 8:51 PM PDT Approved by: Anthony Myers MD on 09/11/2021 8:51 PM PDT Station ID: [id number]
[2021-09-11 21:20] VITALS: BP 122/77
== END 2021-09-11 21:43 | disposition home or self-care (01) ==
LOC: ED 18:57
DX: S43.005A Unspecified dislocation of left shoulder joint, initial encounter (principal); X58.XXXA Exposure to other specified factors, initial encounter; I10 Essential (primary) hypertension
CPT/HCPCS: 23655; 73020; 73030; 99152; 99153; 99284; 99285; J1170; 94770

== ENCOUNTER 2021-09-13 23:51 | Emergency (ER) | payer MEDICARE, OTHER ==
[2021-09-14] MEDS ORDERED: HYDROmorphone 1 MG/ML CARPUJECT IVP STA (00:01)
[2021-09-14] MEDS ORDERED: ONDANSETRON 4 MG/2 ML VIAL IVP STA (00:01)
[2021-09-14] MEDS ORDERED: PROPOFOL 200 MG/20 ML VIAL IVP STA (00:35)
[2021-09-14 01:16] VITALS: BP 117/69
--- NOTE | 2021-09-14 01:23 | ED Physician Documentation ---
History of Present Illness - Stated complaint Stated Complaint: L SHOULDER DISLOCATED - Chief complaint Chief Complaint: General - History obtained from History obtained from: Patient - Additonal information Additional information: Patient is an 80-year-old male with history of recurrent left shoulder dislocation. He was seen here onSeptember 04 and September 11 with left shoulder dislocations and reductions. He had his arm in his sling. At this evening he had removed to the sling and had reached across the bed to grab the remote control (denies reaching over his head) when he felt his shoulder again go out. He denies any associated numbness or tingling. He denies injuries elsewhere. He is scheduled to see an orthopedic surgeon in [place] tomorrow afternoon to discuss Options for this recurrent dislocation.He last ate around 4 PM. He denies previous issues with sedation. Review of Systems Constitutional: denies: Fever Cardiac: denies: Chest pain / pressure Respiratory: denies: Dyspnea GI: denies: Abdominal Pain Musculoskeletal: reports: Joint pain. denies: Back pain Neurologic: denies: Head injury PD PAST MEDICAL HISTORY - Past Medical History Cardiovascular: Hypertension, High cholesterol Respiratory: Sleep apnea Neuro: None Endocrine/Autoimmune: None GI: None : Benign prostate hypertrophy, Other HEENT: Other Psych: None Musculoskeletal: Gout, Other Derm: None - Past Surgical History Past Surgical History: Yes Ortho: Rotator cuff repair Cardiovascular: Other HEENT: Cataracts - Present Medications Home Medications: Ambulatory Orders Medication Instructions Recorded Confirmed Calcipotriene/Betamethasone 1 applic TOP DAILY 10/23/20 11/09/20 [Wynzora 0.005%-0.064% Cream] Tacrolimus/Hyaluronate/Niacin 1 applic TOP DAILY 10/23/20 11/09/20 [Oxianujo 4%-0.1% Cream] Aspirin EC [Ecotrin] 1 tab PO DAILY 10/24/20 11/09/20 Cholecalciferol (Vitamin D3) 1,000 units PO BID 10/24/20 11/09/20 [Vitamin D3] Cyanocobalamin/Folic Acid 1 tab PO DAILY 10/24/20 11/09/20 [T69-Ounad Acid 2500-400 Mcg Tb] Losartan [Cozaar] 100 mg PO DAILY 10/24/20 11/09/20 Omeprazole [PriLOSEC] 1 tab PO DAILY 10/24/20 11/09/20 Potassium Chloride 1 tab PO DAILY 10/24/20 11/09/20 Propylene Glycol [Systane Complete] 1 drops EACHEYE DAILY 10/24/20 11/09/20 Zaleplon 1 cap PO DAILY 10/24/20 11/09/20 bisoproloL fumarate [Bisoprolol 1 tab PO DAILY 10/24/20 11/09/20 Fumarate] HYDROcod/ACETAM 5/325 [Hayden 5/325] 1 - 2 tablet PO Q6H PRN #14 tablet 11/09/20 Colchicine 0.6 mg PO BID 5 Days #10 tablet 08/12/21 Doxycycline Hyclate 100 mg PO BID 5 Days #10 cap 08/12/21 HYDROcod/ACETAM 5/325 [Hayden 5/325] 1 ea PO Q6H PRN #15 tablet 08/12/21 dexAMETHasone [Decadron] 4 mg PO DAILY #7 tablet 08/12/21 Doxycycline Monohydrate 100 mg PO BID #20 cap 09/04/21 HYDROcod/ACETAM 5/325 [Hayden 5/325] 1 - 2 tablet PO Q6H PRN #14 tablet 09/05/21 HYDROcod/ACETAM 5/325 [Hayden 5/325] 1 - 2 tablet PO Q6H PRN #14 tablet 09/11/21 - Allergies Allergies/Adverse Reactions: Allergies Allergy/AdvReac Type Severity Reaction Status Date / Time No Known Drug Allergies Allergy Verified 09/11/21 19:16 - Social History Does the pt smoke?: No Smoking Status: Never smoker Does the pt drink ETOH?: No Does the pt have substance abuse?: No - Immunizations Immunizations are current?: Yes PD ED PE NORMAL - General General: Alert and oriented X 3, Well developed/nourished, Other (In distress due to pain) - HEENT HEENT: Atraumatic, Moist mucous membranes - Cardiac Cardiac: RRR - Respiratory Respiratory: No respiratory distress, Clear bilaterally - Extremities Extremities: Other (Left shoulder with deformity, Strong left radial pulse,Motor and sensation intact in the left upper extremity) Results - Vitals Vitals: Vital Signs - 24 hr 09/13/21 09/14/21 09/14/21 23:57 00:47 00:52 Temperature 36.8 C Heart Rate 93 91 87 Respiratory 25 H 23 15 Rate Blood Pressure 143/123 H 155/92 H 116/83 H O2 Saturation 96 100 100 09/14/21 09/14/21 00:58 01:13 Temperature Heart Rate 89 69 Respiratory 13 12 Rate Blood Pressure 104/77 117/69 O2 Saturation 95 97 Oxygen O2 Source Room air Procedures - Reduction Body part reduced: Left Fracture or dislocation: Dislocation Anesthesia: Dilaudid, Other (Propofol) Shoulder reduction technique: [place] / ext rotation Reduction aftercare: NV intact, Xray confirms reduction, Alignment improved, Sling, Patient tolerated well - Procedural sedation Sedation prep: Informed consent, Time out completed, Last meal (4 PM), PE performed, ASA 2 - mild disease Sedation Medications: propofol Mallampati classification: III Patient status during sedation: Responds to tactile, Recovered uneventfully, Respiratory depression, Needed resp assistance (Jaw thrust) Sedation recovery: Recovered uneventfully, Back to baseline Time in sedation (Minutes): 10 PD MEDICAL DECISION MAKING - ED course Complexity details: reviewed results, re-evaluated patient, d/w patient, d/w family ED course: Patient with recurrent left shoulder dislocation. Successfully reduced. Neurovascularly intact. Sling applied and patient to follow-up with orthopedic surgeon Later today At an appointment he had previously scheduled. Departure - Departure Disposition: 01 Home, Self Care Clinical Impression: Recurrent dislocation, left shoulder Condition: Stable Instructions: ED Sedation Procedural Discon, ED Dislocation Shoulder Redu Comments: You were again seen for a dislocation to your left shoulder. We were able to successfully reduce it. You did receive medication to help sedate you. Please keep your arm in your sling. Your joint is very unstable and any Motions could lead to it again being dislocated. Please follow-up with your orthopedic surgeon as scheduled tomorrow. Please take the pain medication previously prescribed to you as needed. Return to the emergency department with any concerns. Discharge Date/Time: 09/14/21 02:30
--- NOTE | 2021-09-14 02:29 | XRAY Report ---
PROCEDURE: Shoulder 3 View LT INDICATIONS: dislocation TECHNIQUE: 3 views of the shoulder were acquired. COMPARISON: 09/11/2021, 09/05/2021. FINDINGS: Bones: There is recurrent anterior dislocation of the left glenohumeral joint. Bony irregularity and fragmentation of the superolateral humeral head is redemonstrated consistent with a chronic Hill-Sach s fracture deformity. Visualized ribs appear intact. Soft tissues: A few small calcifications are demonstrated adjacent to the humeral head likely represe nting small fracture fragments. IMPRESSION: 1. Recurrent anterior dislocation of the left glenohumeral joint. Reviewed by: Anthony Myers MD on 09/14/2021 2:27 AM PDT Approved by: Anthony Myers MD on 09/14/2021 2:27 AM PDT Station ID: [id number]
--- NOTE | 2021-09-14 02:30 | XRAY Report ---
PROCEDURE: Shoulder 1 View LT INDICATIONS: reduction TECHNIQUE: 2 views of the shoulder were acquired. COMPARISON: 09/14/2021, 09/11/2021. FINDINGS: Bones: There is interval reduction of the previously dislocated left glenohumeral joint. Bony irregul arity and fragmentation of the superolateral humeral head redemonstrated consistent with sequelae of a chronic Hill-Sachs fracture deformity. No discrete bony Bankart fracture identified. Visualized rib s appear intact. Soft tissues: Small calcifications adjacent to the humeral head are compatible with small fracture fr agments. IMPRESSION: 1. Interval reduction of the left glenohumeral joint. 2. Chronic Hill-Sachs fracture deformity redemonstrated. Reviewed by: Anthony Myers MD on 09/14/2021 2:29 AM PDT Approved by: Anthony Myers MD on 09/14/2021 2:29 AM PDT Station ID: [id number]
== END 2021-09-14 02:30 | disposition home or self-care (01) ==
LOC: ED 23:51
DX: M24.412 Recurrent dislocation, left shoulder (principal)
CPT/HCPCS: 23650; 73020; 73030; 96374; 96375; 99152; 99282; 99283; J1170

== ENCOUNTER 2021-09-16 08:00 | Outpatient (CLI) | payer MEDICARE, OTHER ==
[2021-09-16 16:05] LABS: BASOPHILS % (AUTO) 0.4 %; EOSINOPHILS # (AUTO) 0.1 10^3/uL (0.0-0.7); EOSINOPHILS % (AUTO) 0.8 %; HCT - HEMATOCRIT 38.4 % (42.0-52.0); HGB - HEMOGLOBIN 12.7 g/dL (14.0-18.0); LYMPHOCYTES # (AUTO) 1.9 10^3/uL (1.5-3.5); LYMPHOCYTES % (AUTO) 26.4 %; MEAN CORPUSCULAR HEMOGLOBIN 35.4 pg (27.0-31.0); MEAN CORPUSCULAR HGB CONC 33.1 g/dL (32.0-36.0); MEAN PLATELET VOLUME 11.2 fL (7.4-11.4); MONOCYTES # (AUTO) 0.8 10^3/uL (0.0-1.0); MONOCYTES % (AUTO) 11.5 %; NEUTROPHILS # (AUTO) 4.4 10^3/uL (1.5-6.6); NEUTROPHILS % (AUTO) 59.9 %; PLT - PLATELET COUNT 225 10^3/uL (130-450); RED BLOOD COUNT 3.59 10^6/uL (4.70-6.10); RED CELL DISTRIBUTION WIDTH 14.5 % (12.0-15.0); WHITE BLOOD COUNT 7.3 x10^3/uL (4.8-10.8)
[2021-09-16 16:38] LABS: ALBUMIN 3.6 g/dL (3.2-5.5); ALBUMIN/GLOBULIN RATIO 1.1 (1.0-2.2); BILIRUBIN,TOTAL 0.5 mg/dL (0.2-1.0); CALCIUM 9.8 mg/dL (8.5-10.3); CREATININE 1.3 mg/dL (0.6-1.2); TOTAL PROTEIN 6.9 g/dL (6.7-8.2); URIC ACID 3.3 mg/dL (2.6-7.2)
[2021-09-16 16:43] LABS: POTASSIUM 6.2 mmol/L (3.5-5.0)
== END 2021-09-16 23:59 | disposition home or self-care (01) ==
LOC: LAB.R 08:00
PROVIDERS: ATTEND Internal Medicine
DX: M10.9 Gout, unspecified (principal); E87.6 Hypokalemia; M24.419 Recurrent dislocation, unspecified shoulder; Z79.899 Other long term (current) drug therapy; Z87.828 Personal history of other (healed) physical injury and trauma
CPT/HCPCS: 80053; 84550; 85025

== ENCOUNTER 2021-09-17 11:48 | Outpatient (CLI) | payer MEDICARE, OTHER | END 2021-09-17 11:49 | disposition home or self-care (01) | LOC: LAB 11:48 | PROVIDERS: ATTEND Internal Medicine | DX: E87.5 Hyperkalemia (principal) | CPT/HCPCS: 36415; 84132 ==

== ENCOUNTER 2021-09-30 13:49 | Outpatient (CLI) | payer MEDICARE, OTHER ==
[2021-09-30 14:13] LABS: CALCIUM 9.4 mg/dL (8.5-10.3); CREATININE 1.2 mg/dL (0.6-1.2); POTASSIUM 3.9 mmol/L (3.5-5.0)
== END 2021-09-30 13:50 | disposition home or self-care (01) ==
LOC: LAB 13:49
PROVIDERS: ATTEND Internal Medicine
DX: E78.5 Hyperlipidemia, unspecified (principal)
CPT/HCPCS: 36415; 80048